=== PATIENT | male | born 1995 | race Caucasian/White ===

== ENCOUNTER 2023-01-04 23:26 | Emergency (ER) | payer OTHER ==
[2023-01-04 23:31] VITALS: RESP 18; TEMP 98.5; O2SAT 96
[2023-01-05 00:12] VITALS: BP 109/86; PULSE 73
--- NOTE | 2023-01-05 00:12 | ERPHSYRPT ---
- History of Present Illness Time Seen by Provider: 01/04/23 23:52 Source: patient Exam Limitations: no limitations Patient Subjective Stated Complaint: I was feeding the chickens and stepped over a puddle into some mud and twisted my ankle, and I heard a pop. Triage Nursing Assessment: pt ambulated into ER on crutches without difficulty. Pt c/o unable to bear weight onto rt ankle. Pt states, "I was feeding the chickens tonight and stepped over a puddle into some mud and slipped, twisting my ankle and I heard a pop". Rt ankle is swollen with some slight bruising noted. Rt pedal pulse present. Pt can wiggle his toes, do dorsiflexion and plantar flexion, but unable to move foot side to side. Physician History: 27-year-old male who presented in the ER with chief complaint of right lateral ankle pain and swelling after he twisted his ankle earlier today when he slipped in mud. Patient reported dull aching to sharp pain with flexion extension and he did report hearing a popping sound when it happened. Gradually increasing swelling on the lateral ankle. Pain is worse with weightbearing. Using crutches which she had at home. No injury anywhere else. On exam has tenderness/swollen right lateral reproducible pain with patient and also with flexion extension. Base of fifth metatarsal. Offered pain medication which she declined. X-rays of negative for fracture dislocation reviewed by me, official report is pending. Placed in Aircast, weightbearing as tolerated, Tylenol ibuprofen and outpatient follow-up. Allergies/Adverse Reactions: No Known Drug Allergies Allergy (Unverified 01/04/23 23:40) Hx Tetanus, Diphtheria Vaccination/Date Given: Yes Hx Influenza Vaccination/Date Given: Yes Hx Pneumococcal Vaccination/Date Given: No Immunizations Up to Date: Yes Travel Risk - International Travel Have you traveled outside of the country in past 3 weeks: No - Coronavirus Screening Are you exhibiting any of the following symptoms?: No Close contact with a COVID-19 positive Pt in past 14-21 Days: No - Vaccine Status Have you recieved a Covid-19 vaccination: No - Review of Systems Constitutional: No Symptoms Ears, Nose, & Throat: No Symptoms Respiratory: No Symptoms Cardiac: No Symptoms Abdominal/Gastrointestinal: No Symptoms Musculoskeletal: Injury, Joint Pain, Joint Swelling Skin: No Symptoms Neurological: No Symptoms Endocrine: No Symptoms - Past Medical History Pertinent Past Medical History: No - Past Surgical History Past Surgical History: No - Social History Smoking Status: Never smoker Exposure to second hand smoke: No Drug Use: none Patient Lives Alone: No - Nursing Vital Signs Nursing Vital Signs: Initial Vital Signs Temperature 98.5 F 01/04/23 23:29 Pulse Rate 110 H 01/04/23 23:29 Respiratory Rate 18 01/04/23 23:29 Blood Pressure 193/116 01/04/23 23:29 O2 Sat by Pulse Oximetry 96 01/04/23 23:29 Pain Scale Pain Intensity 2 - Physical Exam General Appearance: no apparent distress Neck Exam: normal inspection, full range of motion Cardiovascular/Respiratory Exam: normal breath sounds, regular rate/rhythm Back Exam: normal inspection, normal range of motion Knees Exam: bilateral knee: non-tender, normal inspection, normal range of motion Ankle Exam: right ankle: bone tenderness (Lateral malleolus), limited range of motion, pain, soft tissue tenderness, swelling, left ankle: non-tender, normal inspection, normal range of motion, no evidence of injury Foot Exam: bilateral foot: non-tender, normal inspection, normal range of motion, no evidence of injury Neuro/Tendon Exam: normal sensation, normal motor functions Mental Status Exam: alert, oriented x 3, cooperative Skin Exam: normal color SpO2 Interpretation: normal SpO2: 96 O2 Delivery: Room Air Ordered Tests: Active Orders 24 hr Category Date Time Status ANKLE (3 VIEWS) Stat Exams 01/04/23 23:52 Taken - Progress Progress: unchanged Progress Note: 01/05/23 00:09 27-year-old male who presented in the ER with chief complaint of right lateral ankle pain and swelling after he twisted his ankle earlier today when he slipped in mud. Patient reported dull aching to sharp pain with flexion extension and he did report hearing a popping sound when it happened. Gradually increasing swelling on the lateral ankle. Pain is worse with weightbearing. Using crutches which she had at home. No injury anywhere else. On exam has tenderness/swollen right lateral reproducible pain with patient and also with flexion extension. Base of fifth metatarsal. Offered pain medication which she declined. X-rays of negative for fracture dislocation reviewed by me, official report is pending. Placed in Aircast, weightbearing as tolerated, Tylenol ibuprofen and outpatient follow-up. Counseled pt/family regarding: diagnosis, need for follow-up, rad results Medical Desision Making - Diagnostic Testing Diagnostic test were ordered, analyzed, and reviewed by me: Yes Radiological Interpretation: Interpreted by me, Reviewed by me - Risk of complications The pt has a mod risk of morbidity or mortality based on: Need for prescription drug management - Departure Departure Disposition: Home Clinical Impression: Ankle sprain Condition: Stable Critical Care Time: No Referrals: ROSALIE - SAMM ZAPATA NP [NON-STAFF PHY W/O PRIVILEGES] - Follow up/PCP as directed (1-2 days for reevaluation) Instructions: Ankle Sprain (DC) Additional Instructions: Intermittent ice application. Tylenol/ibuprofen as needed for pain. Weightbearing as tolerated. Follow-up with primary plater/orthopedics for reevaluation in 1 to 2 days. Return to ER for worsening. Prescriptions: Ibuprofen 600 mg PO Q6HPRN PRN 10 Days #20 tablet PRN Reason: Pain
--- NOTE | 2023-01-05 08:52 | XRAY ---
Indication: Pain following fall. Comparison: None 3 view right ankle demonstrates mild anterolateral soft tissue swelling and small posterior calcaneal bone island. No other bony, articular, or soft tissue abnormalities.
== END 2023-01-05 00:15 | disposition home or self-care (01) ==
LOC: ED 23:26
DX: S93.401A Sprain of unspecified ligament of right ankle, initial encounter (principal); W18.49XA Other slipping, tripping and stumbling without falling, initial encounter; Y93.K9 Activity, other involving animal care; Z28.310 Unvaccinated for COVID-19
CPT/HCPCS: 73610; 99283